=== PATIENT | male | born 1950 | race Caucasian/White ===

== ENCOUNTER → 2016-10-12 | Outpatient (CLI) | payer MEDICARE, OTHER | END | disposition home or self-care (01) | LOC: PCVCIMAG 13:31 | PROVIDERS: ATTEND Internal Medicine | DX: I63.233 Cerebral infarction due to unspecified occlusion or stenosis of bilateral carotid arteries (principal); I27.81 Cor pulmonale (chronic); I10 Essential (primary) hypertension; J43.9 Emphysema, unspecified; E78.2 Mixed hyperlipidemia; I77.9 Disorder of arteries and arterioles, unspecified; I49.5 Sick sinus syndrome; E78.5 Hyperlipidemia, unspecified; F17.210 Nicotine dependence, cigarettes, uncomplicated; R94.31 Abnormal electrocardiogram [ECG] [EKG]; I45.10 Unspecified right bundle-branch block; Z79.899 Other long term (current) drug therapy | CPT/HCPCS: 80061; 93005; 93880; G0463 ==

== ENCOUNTER → 2016-11-25 | Outpatient (CLI) | payer MEDICARE, OTHER ==
--- NOTE | 2016-11-26 17:52 | PCVCIMAG ---
APPROVED REPORT Study performed: 11/25/2016 14:27:59 EXAM: Comprehensive 2D, Doppler, and color-flow Echocardiogram Patient Location: Echo lab Status: stat Indications CVA/TIA Cardiomyopathy Hypertension/HDD Edema,Tachy-Kobe 2D Dimensions LVEF(%): 16.28 (>50%) IVSd: 8.70 (7-11mm)LVOT Diam: 19.82 (18-24mm) LVDd: 50.67 mm PWd: 10.59 (7-11mm)Ascending Ao: 31.64 (22-36mm) LVDs: 46.95 (25-40mm) Left Atrium: 30.63 (27-40mm) Aortic Root: 28.55 mm LV Single Plane 4CH: 48.58 % LV Single Plane 2CH: 57.32 %Rivera's LVEF: 52.95 % Biplane EF: 54.4 % Volumes Left Atrial Volume (Systole) Single Plane 4CH: 49.06 mLSingle Plane 2CH: 15.66 mL LA ESV Index: 15.00 mL/m2 Aortic Valve AoV Peak Seth.: 1.11 m/s AO Peak Gr.: 4.91 mmHgLVOT Max P.41 mmHg LVOT Max V: 0.78 m/s SHEREE Vmax: 2.16 cm2 Mitral Valve E/A Ratio: 0.7 MV Decel. Time: 286.27 ms MV E Max Seth.: 0.45 m/s MV A Seth.: 0.67 m/s IVRT: 131.49 ms TDI E/Lateral E': 9.00E/Medial E': 7.50 Medial E' Seth.: 0.06 m/s Lateral E' Seth.: 0.05 m/s Pulmonary Valve PV Peak Seth.: 0.67 m/sPV Peak Gr.: 1.80 mmHg Pulmonary Vein P Vein S: 0.67 m/sP Vein A: 0.42 m/s P Vein D: 0.37 m/sP Vein A Dur.: 100.3 msec P Vein S/D Ratio: 1.81 Tricuspid Valve TV Vmax: 0.47 m/s Left Ventricle The left ventricle is normal size. There is normal LV segmental wall motion. There is normal left ventricular wall thickness. Left ventricular systolic function is normal. LVEF is 50-55%. Grade I - abnormal relaxation pattern. Right Ventricle The right ventricle is normal size. The right ventricular systolic function is normal. Atria The left atrium size is normal. The right atrium size is normal. Aortic Valve The aortic valve is normal in structure. No aortic regurgitation is present. There is no aortic valvular stenosis. Mitral Valve The mitral valve is normal in structure. There is no mitral valve regurgitation noted. No evidence of mitral valve stenosis. Tricuspid Valve The tricuspid valve is normal in structure. There is no tricuspid valve regurgitation noted. Pulmonic Valve The pulmonary valve is normal in structure. There is no pulmonic valvular regurgitation. Great Vessels The aortic root is normal in size. The ascending aorta is normal in size. IVC is normal in size and collapses with >50% inspiration The pulmonary artery is normal. Pericardium There is no pericardial effusion. There is no pleural effusion. <Conclusion> Left ventricular systolic function is normal. There is normal LV segmental wall motion. LVEF is 50-55%. Grade I diastolic dysfunction The both atria size are normal. The aortic valve is normal in structure. No aortic regurgitation or stenosis The mitral valve is normal in structure. No mitral insufficiency Pulmonary artery pressure could not be reliably ascertained There is no pericardial effusion. Echodensity at junction between IVC and right atrium of uncertain etiology. Consider CT imaging
== END | disposition home or self-care (01) ==
LOC: PCVCIMAG 14:03
PROVIDERS: ATTEND Internal Medicine
DX: I10 Essential (primary) hypertension (principal); J44.9 Chronic obstructive pulmonary disease, unspecified; I63.9 Cerebral infarction, unspecified; I42.9 Cardiomyopathy, unspecified
CPT/HCPCS: 93306

== ENCOUNTER → 2017-03-23 | Outpatient (CLI) | payer MEDICARE, OTHER | END | disposition home or self-care (01) | LOC: PCVCCLINIC 13:58 | PROVIDERS: ATTEND Internal Medicine | DX: I10 Essential (primary) hypertension (principal); I27.81 Cor pulmonale (chronic); J43.9 Emphysema, unspecified; I77.9 Disorder of arteries and arterioles, unspecified; E78.5 Hyperlipidemia, unspecified; I63.231 Cerebral infarction due to unspecified occlusion or stenosis of right carotid arteries; I45.10 Unspecified right bundle-branch block; R94.31 Abnormal electrocardiogram [ECG] [EKG]; F17.210 Nicotine dependence, cigarettes, uncomplicated; Z79.82 Long term (current) use of aspirin; Z79.899 Other long term (current) drug therapy | CPT/HCPCS: 93005; G0463 ==

== ENCOUNTER → 2017-07-26 | Outpatient (CLI) | payer MEDICARE, OTHER | END | disposition home or self-care (01) | LOC: PCVCCLINIC 12:53 | DX: I27.81 Cor pulmonale (chronic) (principal); I10 Essential (primary) hypertension; E78.5 Hyperlipidemia, unspecified; I63.231 Cerebral infarction due to unspecified occlusion or stenosis of right carotid arteries; R94.31 Abnormal electrocardiogram [ECG] [EKG]; F17.210 Nicotine dependence, cigarettes, uncomplicated; Z79.899 Other long term (current) drug therapy; Z79.82 Long term (current) use of aspirin | CPT/HCPCS: 80061; 93005; G0463 ==

== ENCOUNTER → 2017-09-21 | Outpatient (CLI) | payer MEDICARE, OTHER | END | disposition home or self-care (01) | LOC: PCVCCLINIC 14:24 | DX: I63.231 Cerebral infarction due to unspecified occlusion or stenosis of right carotid arteries (principal); I27.81 Cor pulmonale (chronic); I10 Essential (primary) hypertension; E78.5 Hyperlipidemia, unspecified; R94.31 Abnormal electrocardiogram [ECG] [EKG]; F17.210 Nicotine dependence, cigarettes, uncomplicated; Z79.82 Long term (current) use of aspirin; Z79.899 Other long term (current) drug therapy | CPT/HCPCS: 93005; G0463 ==

== ENCOUNTER → 2018-03-01 | Outpatient (CLI) | payer MEDICARE, OTHER ==
--- NOTE | 2018-03-01 12:30 | PCVCIMAG ---
APPROVED REPORT Indications Stenosis CVA/TIA: Motor Deficit, Risk Factors Hypertension: Hyperlipidemia Doppler Spectral Velocity Analysis PSV / EDVPSV / EDV ECA (R) 123 / 15 cm/sECA (L) 111 / 14 cm/s dICA (R)dICA (L) 43 / 17 cm/s Antwon (R) 0 / 0 cm/smICA (L) 80 / 33 cm/s pICA (R) 0 / 0 cm/spICA (L) 82 / 32 cm/s Bulb (R) 26 / 7 cm/sBulb (L) 66 / 17 cm/s dCCA (R) 33 / 0 cm/sdCCA (L) 74 / 24 cm/s mCCA (R) 41 / 8 cm/smCCA (L) 73 / 19 cm/s Vert (R) 33 / 8 cm/sVert (L) 60 / 17 cm/s ICA/CCA 0.00ICA/CCA 1.11 Basic Measurements Blood Pressure: Pulses: Right Left RightLeft Brachial(Sitting) 122/17pmSm575/80mmHgTemporal Real Time B-Mode Imaging Vert. (R)AntegradeVert. (L)Antegrade Findings The right carotid bulb has moderately severe plaque. The right proximal internal carotid artery shows chronic, complete occlusion The right common carotid artery shows no significant stenosis. The right external carotid artery shows no significant stenosis. The left carotid bulb has moderate plaque. The left proximal internal carotid artery shows <40% stenosis. The left common carotid artery shows no significant stenosis. The left external carotid artery shows no significant stenosis. Conclusion 1. Chronic right internal carotid artery occlusion 2. Left internal carotid artery stenosis (<40%) 3. Antegrade vertebral flow
--- NOTE | 2018-03-01 12:38 | PCVCIMAG ---
APPROVED REPORT Study performed: 03/01/2018 11:14:27 EXAM: Comprehensive 2D, Doppler, and color-flow Echocardiogram Patient Location: Echo lab Status: routine BSA: 2.35 HR: 56 bpmBP: 112/80 mmHg Rhythm: Bradycardia Other Information Study Quality: Adequate Risk Factors: Cardiac Risk Factors: HTN Indications COPD Dyspnea 2D Dimensions IVSd: 10.08 (7-11mm) LVDd: 52.55 mm PWd: 8.28 (7-11mm) LVDs: 41.54 (25-40mm) Left Atrium: 31.90 (27-40mm) Aortic Root: 34.46 mm LV Single Plane 4CH: 62.48 % LV Single Plane 2CH: 56.04 % Volumes Left Atrial Volume (Systole) Single Plane 4CH: 74.01 mLSingle Plane 2CH: 44.93 mL LA ESV Index: 26.00 mL/m2 Aortic Valve AoV Peak Seth.: 1.10 m/s AO Peak Gr.: 4.88 mmHgLVOT Max P.91 mmHg LVOT Max V: 0.85 m/s Mitral Valve E/A Ratio: 1.3 MV Decel. Time: 312.42 ms MV E Max Seth.: 0.56 m/s MV A Seth.: 0.44 m/s IVRT: 169.55 ms Pulmonary Valve PV Peak Seth.: 0.70 m/sPV Peak Gr.: 1.94 mmHg Pulmonary Vein P Vein S: 0.33 m/sP Vein A: 0.30 m/s P Vein D: 0.42 m/sP Vein A Dur.: 114.2 msec P Vein S/D Ratio: 0.79 Left Ventricle The left ventricle is normal size. There is normal LV segmental wall motion. There is normal left ventricular wall thickness. Left ventricular systolic function is normal. The left ventricular ejection fraction is within the normal range. LVEF is 50-55%. Grade I - abnormal relaxation pattern. Right Ventricle The right ventricle is normal size. The right ventricular systolic function is normal. Atria The left atrium size is normal. The right atrium size is normal. Aortic Valve The aortic valve is normal in structure. No aortic regurgitation is present. There is no aortic valvular stenosis. Mitral Valve The mitral valve is normal in structure. There is no mitral valve regurgitation noted. No evidence of mitral valve stenosis. Tricuspid Valve The tricuspid valve is normal in structure. There is no tricuspid valve regurgitation noted. Pulmonic Valve The pulmonary valve is normal in structure. There is no pulmonic valvular regurgitation. Great Vessels The aortic root is normal in size. IVC is normal in size and collapses >50% with inspiration. Pericardium There is no pericardial effusion. There is no pleural effusion. <Conclusion> Left ventricular systolic function is normal. There is normal LV segmental wall motion. EF 55% Grade I - abnormal relaxation pattern. The aortic valve is normal in structure. No aortic regurgitation or stenosis The mitral valve is normal in structure. No mitral valve regurgitation Pulmonary artery pressure could not be reliably ascertained. There is no pericardial effusion.
== END | disposition home or self-care (01) ==
LOC: PCVCIMAG 10:18
PROVIDERS: ATTEND Internal Medicine
DX: I63.231 Cerebral infarction due to unspecified occlusion or stenosis of right carotid arteries (principal); I27.81 Cor pulmonale (chronic); I10 Essential (primary) hypertension; E78.5 Hyperlipidemia, unspecified; G47.33 Obstructive sleep apnea (adult) (pediatric); E11.9 Type 2 diabetes mellitus without complications; J44.9 Chronic obstructive pulmonary disease, unspecified; R06.09 Other forms of dyspnea; F17.210 Nicotine dependence, cigarettes, uncomplicated; Z79.82 Long term (current) use of aspirin; Z79.899 Other long term (current) drug therapy
CPT/HCPCS: 80061; 93005; 93306; 93880; G0463

== ENCOUNTER → 2019-03-20 | Outpatient (CLI) | payer MEDICARE, OTHER ==
--- NOTE | 2019-03-20 13:34 | PCVCIMAG ---
APPROVED REPORT Indications Stenosis Risk Factors Hypertension: Hyperlipidemia Diabetes, Doppler Spectral Velocity Analysis PSV / EDVPSV / EDV ECA (R) 60 / 6 cm/sECA (L) 126 / 8 cm/s dICA (R)dICA (L) 58 / 14 cm/s Antwon (R) Antwon (L) 69 / 19 cm/s pICA (R) 0 / 0 cm/spICA (L) 58 / 8 cm/s Bulb (R) 0 / 0 cm/sBulb (L) 40 / 6 cm/s dCCA (R) 38 / 5 cm/sdCCA (L) 88 / 21 cm/s mCCA (R) 61 / 0 cm/smCCA (L) 72 / 15 cm/s Vert (R) 50 / 14 cm/sVert (L) 43 / 18 cm/s ICA/CCA 0.00ICA/CCA 0.78 Basic Measurements Blood Pressure: Pulses: Right Left RightLeft Brachial(Sitting) 114/95cfIr972/68mmHgTemporal Real Time B-Mode Imaging Vert. (R)AntegradeVert. (L)Antegrade Findings RIGHT CAROTID: The carotid bulb has severe plaque. The proximal internal carotid artery shows chronic total occlusion. The common carotid artery shows no significant stenosis. The external carotid artery shows no significant stenosis. LEFT CAROTID: The carotid bulb has moderate plaque. The proximal internal carotid artery shows <40% stenosis. The common carotid artery shows no significant stenosis. The external carotid artery shows no significant stenosis. Conclusion Chronic total occlusion cervical right internal carotid artery. <40% stenosis of the left internal carotid artery with moderate plaque. No change since February 2018 study.
== END | disposition home or self-care (01) ==
LOC: PCVCIMAG 13:01
PROVIDERS: ATTEND Internal Medicine
DX: I63.233 Cerebral infarction due to unspecified occlusion or stenosis of bilateral carotid arteries (principal); E78.5 Hyperlipidemia, unspecified; J44.9 Chronic obstructive pulmonary disease, unspecified; E11.9 Type 2 diabetes mellitus without complications; I10 Essential (primary) hypertension; I27.81 Cor pulmonale (chronic); G47.33 Obstructive sleep apnea (adult) (pediatric); R60.0 Localized edema; F17.210 Nicotine dependence, cigarettes, uncomplicated; Z79.82 Long term (current) use of aspirin; Z79.84 Long term (current) use of oral hypoglycemic drugs; Z79.899 Other long term (current) drug therapy
CPT/HCPCS: 93005; 93880; G0463